=== PATIENT | female | born 1970 | race Two or more races ===

== ENCOUNTER 2018-04-15 05:21 | Emergency (ER) | payer MEDICAID, OTHER ==
[~2018-04-15] VITALS: Ht 162.6 cm; Wt 77.1 kg
--- NOTE | 2018-04-15 05:32 | NUR ---
BB RA FROM HOME C/O "INFORMED BY CHECK AND TRANSFER BEADER TO GET BLOOD WORK DONE" "SOMEONE HAS BEEN BLOWING SMOKE INTO MY VENTS" PT AOX3 RR EVEN AND UNLABORED.NO SOB NOTED. NAD NOTED. NO NVD AT THIS TIME. PT WAITING FOR MD LING.
--- NOTE | 2018-04-15 05:38 | NUR ---
URINE COLLECTED. SENT TO LAB
--- NOTE | 2018-04-15 05:38 | NUR ---
LAB AT BEDSIDE FOR BLOOD DRAW.
[2018-04-15] MEDS ORDERED: OLANZAPINE 5 MG TABLET ONE (05:53)
--- NOTE | 2018-04-15 05:56 | NUR ---
PT REFUSED PO ZYPREXA. RISK AND BENEFITS EXPLAINED X3. PT STILL STRONGLY REFUSED. DR. NAGY MADE AWARE.
[2018-04-15 06:06] LABS: BASOPHILS % (AUTO) 0.4 % (0.0-2.0); EOSINOPHILS % (AUTO) 2.3 % (0.0-6.0); HEMATOCRIT 41 % (33-45); HEMOGLOBIN 13.8 g/dL (11.5-14.8); LYMPHOCYTES # (AUTO) 1.4 /CMM (0.8-4.8); LYMPHOCYTES % (AUTO) 13.5 % (20.0-44.0); MEAN CORPUSCULAR HGB CONC 34 g/dl (31.0-36.0); MEAN CORPUSCULAR VOLUME 90 fL (82-100); MONOCYTES # (AUTO) 0.8 /CMM (0.1-1.30); MONOCYTES % (AUTO) 7.6 % (2.0-12.0); NEUTROPHILS # (AUTO) 7.8 /CMM (1.8-8.9); NEUTROPHILS % (AUTO) 76.2 % (43.0-81.0); PLATELET COUNT (AUTO) 255 /CMM (150-450); RDW COEFFICIENT OF VARIATION 12.6 (11.5-15.0); RED BLOOD CELL COUNT(AUTO) 4.57 MIL/uL (4.0-5.2); WHITE BLOOD COUNT (AUTO) 10.3 K/uL (4.3-11.0)
[2018-04-15 06:08] LABS: CARBON DIOXIDE 23 mmol/L (21-32); CHLORIDE 103 mmol/L (98-107); CREATININE 1.2 mg/dL (0.6-1.3); GLUCOSE 98 mg/dL (74-106); POTASSIUM 4.4 mmol/L (3.5-5.1); SODIUM SERUM 137 mmol/L (136-145); UREA NITROGEN, BLOOD 22 mg/dL (7-18)
[2018-04-15 06:13] LABS: ALANINE AMINOTRANSFERASE 20 U/L (12-78); ALBUMIN 3.4 g/dL (3.4-5.0); ALCOHOL, BLOOD < 3 mg/dL (0-0); ALKALINE PHOSPHATASE 78 U/L (46-116); ASPARTATE AMINOTRANSFERASE 14 U/L (15-37); BILIRUBIN,TOTAL 0.3 mg/dL (0.2-1.0); SALICYLATE 6.8 mg/dL (2.8-20.0); TOTAL PROTEIN, SERUM 7.2 g/dL (6.4-8.2)
[2018-04-15 06:15] LABS: ACETAMINOPHEN 0 ug/ml (10-30)
[2018-04-15 06:21] LABS: THYROID STIMULATING HORMONE 1.713 uIU/mL (0.358-3.74)
--- NOTE | 2018-04-15 06:31 | NUR ---
DR. NAGY IS AT THE BEDSIDE SPEAKING TO THE PT.
--- NOTE | 2018-04-15 07:02 | NUR ---
MD NAGY SPEAKING TO PT FRIEND REGARDING HIM TAKING THE PATIENT BACK TO A TRANSITIONAL MENTAL PROGRAM. STATES "YEAH, SHE LIVES IN THE SAME BUILDING I DO AND I USUALLY LOOK AFTER HER. I CAN TAKE HER HOME IF SHE WANTS TO GO"
[2018-04-15] MEDS ORDERED: ONDANSETRON 4 MG TAB.RAPDIS ONE (07:11)
[2018-04-15 07:13] VITALS: BP 131/78
[2018-04-15] MEDS ORDERED: ONDANSETRON 4 MG TAB.RAPDIS PO ONE (07:30)
== END 2018-04-15 07:13 | disposition home or self-care (01) ==
LOC: ER 05:23
DX: F29 Unspecified psychosis not due to a substance or known physiological condition (principal); F31.9 Bipolar disorder, unspecified
CPT/HCPCS: 36415; 80048-TC; 80076-TC; 80305; 84443-TC; 84703-TC; 85025-TC; A4606; G0480; Q0162; Z7610